=== PATIENT | male | born 1945 | race Caucasian/White ===

== ENCOUNTER 2022-09-12 09:34 | Inpatient (IN) | payer OTHER, MEDICAID ==
[~2022-09-12] VITALS: Ht 180.3 cm; Wt 68.0 kg
[2022-09-12 09:36] VITALS: BP 93/45
--- NOTE | 2022-09-12 09:36 | NUR ---
Patient BIBA to bed 5.
[2022-09-12] MEDS ORDERED: NACL 0.9% 500 ML IV ONE (09:55)
--- NOTE | 2022-09-12 10:04 | NUR ---
X-Ray at bedside.
[2022-09-12 10:06] LABS: BASOPHILS % (AUTO) 0.5 % (0.0-2.0); EOSINOPHILS # (AUTO) 0.4 K/uL (0-0.4); EOSINOPHILS % (AUTO) 4.7 % (0.0-4.0); HEMATOCRIT 35.5 % (36-52); LYMPHOCYTES # (AUTO) 1.7 K/uL (2.0-11.5); LYMPHOCYTES % (AUTO) 22.5 % (20.5-51.1); MEAN CORPUSCULAR HEMOGLOBIN 31 pg (27-31); MEAN CORPUSCULAR HGB CONC 34 g/dL (33-37); MEAN CORPUSCULAR VOLUME 92.9 fL (80-94); MONOCYTES # (AUTO) 0.5 K/uL (0.8-1.0); MONOCYTES % (AUTO) 6.2 % (1.7-9.3); NEUTROPHILS # (AUTO) 5.1 K/uL (1.8-7.7); NEUTROPHILS % (AUTO) 66.1 % (42.2-75.2); PLATELET COUNT (AUTO) 193 K/uL (140-450); RED BLOOD CELL COUNT(AUTO) 3.83 MIL/uL (4.20-6.10); RED CELL DISTRIBUTION WIDTH 14.4 % (11.6-13.7); WHITE BLOOD COUNT (AUTO) 7.7 K/uL (4.8-10.8)
[2022-09-12 10:43] LABS: ALBUMIN 3.8 g/dL (3.4-5.0); ANION GAP 10.5 (8-16); ASPARTATE AMINOTRANSFERASE 24 U/L (15-37); CARBON DIOXIDE 29.6 mmol/L (21-32); CHLORIDE 105 mmol/L (98-107); GLUCOSE 113 mg/dL (74-106); POTASSIUM 4.1 mmol/L (3.5-5.1); SODIUM SERUM 141 mmol/L (136-145); TOTAL BILIRUBIN 0.8 mg/dL (0.0-1.0); UREA NITROGEN, BLOOD 25 mg/dL (7-18)
[2022-09-12] MEDS ORDERED: ATOR40TA PO (11:01)
[2022-09-12] MEDS ORDERED: CITA-73 PO (11:01)
[2022-09-12] MEDS ORDERED: CARB1TAB39 PO (11:01)
[2022-09-12] MEDS ORDERED: QUET50TA PO (11:01)
[2022-09-12] MEDS ORDERED: BUS5 PO (11:01)
[2022-09-12] MEDS ORDERED: QUET25TA PO (11:01)
[2022-09-12] MEDS ORDERED: TRAZ-343 PO (11:02)
[2022-09-12] MEDS ORDERED: [UNRECOGNIZED DRUG - CODE] PO (11:02)
[2022-09-12] MEDS ORDERED: ASCO-518 PO (11:02)
--- NOTE | 2022-09-12 11:02 | NUR ---
med rec complete
--- NOTE | 2022-09-12 11:08 | NUR ---
Patient [place].
[2022-09-12 11:15] LABS: APPEARANCE,URINE CLEAR (CLEAR); BILIRUBIN,URINE NEGATIVE (NEGATIVE); BLOOD, URINE NEGATIVE (NEGATIVE); COLOR,URINE YELLOW (YELLOW); LEUKOCYTE ESTERASE ,URINE NEGATIVE (NEGATIVE); NITRITE, URINE NEGATIVE (NEGATIVE); UGLUCOSE NEGATIVE (NEGATIVE)
[2022-09-12] MEDS ORDERED: HYDROcodone/APAP 5/325 MG 1 TAB TAB PO PRN ×2 (11:50)
[2022-09-12] MEDS ORDERED: ONDANSETRON 4 MG/2 ML VIAL IVP PRN (11:50)
--- NOTE | 2022-09-12 12:38 | NUR ---
Patient is resting on bed, respirations even and unlabored. No signs of distress noted.
--- NOTE | 2022-09-12 13:05 | NUR ---
THIS IS AN ADMISSION OF A 77 YEAR OLD MALE UNDER THE CARE OF DOCTOR CORNELIA FOR NEAR SYNCOPE.
[2022-09-12] MEDS: CARBIDOPA/LEVODOPA 25/100 MG 1 TAB PO SCH ×2 (13:18→16:33)
--- NOTE | 2022-09-12 13:40 | NUR ---
Patient will be admitted to care of Dr. Holland. Admited to Telemetry. Will go to room 107-B. Belongings list completed. Report to ARVIN Lindsey.
--- NOTE | 2022-09-12 13:41 | NUR ---
The patient's care was reviewed and supervised by Syeda Fernández, RN, RN.
[2022-09-12 15:03] VITALS: BP 96/41
--- NOTE | 2022-09-12 15:52 | NUR ---
PATIENT HAS BEEN SCREENED AND CATEGORIZED LOW NUTRITION RISK. PATIENT WILL BE SEEN WITHIN 7 DAYS OF ADMISSION. 09/19/[address]
--- NOTE | 2022-09-12 16:05 | NUR ---
DAUGHTER ALEKSANDER, CALL FROM [place]. SHE IS ABLE TO KEEP IN TOUCH VIA PHONE CALLS TO/FROM OUT OF STATE TO HIS [facility] UNIT AND AT THIS TIME THE HOSPITAL. SHE WILL CALL TOMORROW TO CHAT WITH HER DAD.
--- NOTE | 2022-09-12 19:30 | NUR ---
RECEIVED REPORT FROM DAY SHIFT RN FOR CONTINUITY OF CARE. PT IS AWAKE AND WALKING AROUND THE ROOM. PT IS AAOX2 TO NAME AND DATE OF . PT HAS IV ON MARISOL 20 GAUGE SALINE LOCK. SAFETY MEASURES TAKEN. WILL CONTINUE TO MONITOR THE PT.
[2022-09-12 20:00] VITALS: BP 117/99
[2022-09-12] MEDS: busPIRone 5 MG TAB PO SCH (20:10)
[2022-09-12] MEDS: ATORVASTATIN 20 MG TAB PO SCH (20:10)
--- NOTE | 2022-09-12 20:10 | NUR ---
PT WAS GIVEN SCHEDULE MEDICATIONS. TOOK THEM WELL. NO ADVERSE REACTION NOTED. SNACKS ALSO PROVIDED.
[2022-09-12] MEDS: QUEtiapine FUMARATE 25 MG TAB PO SCH (20:11)
[2022-09-12] MEDS ORDERED: traZODone 50 MG TAB PO SCH (21:00)
[2022-09-13] VITALS: BP 125/68
--- NOTE | 2022-09-13 01:00 | NUR ---
OBSERVED PT. PT IS SLEEPING COMFORTABLY IN BED. NOT IN ANY DISTRESS. BREATHING EVEN AND UNLABORED. BED AT HE LOWEST POSITION. HEAD OF THE BED RAISED. WILL CONTINUE TO MONITOR THE PT.
[2022-09-13 04:00] VITALS: BP 138/75
--- NOTE | 2022-09-13 07:06 | NUR ---
ENDORSED PT TO DAY SHIFT SHIFT RN FOR CONTINUITY OF CARE PT IS STABLE.
[2022-09-13 07:28] LABS: EOSINOPHILS % (AUTO) 15.6 % (0.0-4.0); HEMATOCRIT 35.1 % (36-52); HEMOGLOBIN 11.9 g/dL (12.0-18.0); LYMPHOCYTES # (AUTO) 0.4 K/uL (2.0-11.5); LYMPHOCYTES % (AUTO) 6.2 % (20.5-51.1); MEAN CORPUSCULAR HEMOGLOBIN 32 pg (27-31); MEAN CORPUSCULAR HGB CONC 34 g/dL (33-37); MEAN CORPUSCULAR VOLUME 92.9 fL (80-94); MONOCYTES # (AUTO) 0.4 K/uL (0.8-1.0); MONOCYTES % (AUTO) 6.1 % (1.7-9.3); NEUTROPHILS # (AUTO) 4.6 K/uL (1.8-7.7); NEUTROPHILS % (AUTO) 72.1 % (42.2-75.2); PLATELET COUNT (AUTO) 180 K/uL (140-450); RED BLOOD CELL COUNT(AUTO) 3.78 MIL/uL (4.20-6.10); RED CELL DISTRIBUTION WIDTH 14.3 % (11.6-13.7); WHITE BLOOD COUNT (AUTO) 6.4 K/uL (4.8-10.8)
[2022-09-13 08:00] VITALS: BP 114/87
[2022-09-13 08:34] LABS: ANION GAP 13.9 (8-16); CARBON DIOXIDE 26.2 mmol/L (21-32); CHLORIDE 105 mmol/L (98-107); CREATININE 0.9 mg/dL (0.6-1.3); GLUCOSE 79 mg/dL (74-106); POTASSIUM 4.1 mmol/L (3.5-5.1); SODIUM SERUM 141 mmol/L (136-145); UREA NITROGEN, BLOOD 22 mg/dL (7-18)
[2022-09-13] MEDS: CARBIDOPA/LEVODOPA 25/100 MG 1 TAB PO SCH ×3 (09:43→16:57)
[2022-09-13] MEDS: QUEtiapine FUMARATE 25 MG TAB PO SCH ×2 (09:43→20:18)
[2022-09-13] MEDS: busPIRone 5 MG TAB PO SCH ×2 (09:43→20:18)
[2022-09-13] MEDS: ENOXAPARIN 40 MG/0.4 ML SYR SUBQ SCH (09:46)
[2022-09-13] MEDS: RIVASTIGMINE 1.5 MG CAP PO SCH (09:47)
[2022-09-13 12:00] VITALS: BP 121/59
[2022-09-13 16:00] VITALS: BP 131/69
--- NOTE | 2022-09-13 19:30 | NUR ---
RECEIVED REPORT FROM DAY SHIFT RN FOR CONTINUITY OF CARE. PT IS CURRENTLY SLEEPING COMFORTABLY IN BED. NOT IN ANY RESPIRATORY DISTRESS. BREATHING EVEN AND UNLABORED. BED AT THE LOWEST POSITION. HEAD OF THE BED RAISED. BREAKS LOCKED ON BED. CALL LIGHT WITHIN REACH. WILL CONTINUE TO MONITOR THE PT.
[2022-09-13 20:00] VITALS: BP 96/48
[2022-09-13] MEDS: ATORVASTATIN 20 MG TAB PO SCH (20:18)
--- NOTE | 2022-09-13 20:20 | NUR ---
SCHEDULE MEDICATION GIVEN. NO ADVERSE REACTION NOTED. WILL CONTINUE TO MONITOR THE PT.
[2022-09-14 04:00] VITALS: BP 140/76
--- NOTE | 2022-09-14 04:10 | NUR ---
VITAL SIGNS TAKEN AND STABLE. PT RESTING IN BED. NOT IN ANY DISTRESS. VISIBLE RISE AND CHEST FALL. SAFETY MEASURES TAKEN. WILL CONTINUE TO MONITOR THE PT.
[2022-09-14 06:56] LABS: BASOPHILS % (AUTO) 0.5 % (0.0-2.0); EOSINOPHILS # (AUTO) 0.5 K/uL (0-0.4); EOSINOPHILS % (AUTO) 7.8 % (0.0-4.0); HEMATOCRIT 35.1 % (36-52); HEMOGLOBIN 11.9 g/dL (12.0-18.0); LYMPHOCYTES # (AUTO) 2.5 K/uL (2.0-11.5); LYMPHOCYTES % (AUTO) 38.2 % (20.5-51.1); MEAN CORPUSCULAR HEMOGLOBIN 31 pg (27-31); MEAN CORPUSCULAR HGB CONC 34 g/dL (33-37); MEAN CORPUSCULAR VOLUME 92.5 fL (80-94); MONOCYTES # (AUTO) 0.5 K/uL (0.8-1.0); MONOCYTES % (AUTO) 8.3 % (1.7-9.3); NEUTROPHILS % (AUTO) 45.2 % (42.2-75.2); PLATELET COUNT (AUTO) 186 K/uL (140-450); RED BLOOD CELL COUNT(AUTO) 3.79 MIL/uL (4.20-6.10); RED CELL DISTRIBUTION WIDTH 14.2 % (11.6-13.7); WHITE BLOOD COUNT (AUTO) 6.6 K/uL (4.8-10.8)
[2022-09-14 07:02] LABS: ANION GAP 9.5 (8-16); CARBON DIOXIDE 28.8 mmol/L (21-32); CHLORIDE 106 mmol/L (98-107); CREATININE 0.9 mg/dL (0.6-1.3); GLUCOSE 77 mg/dL (74-106); POTASSIUM 4.3 mmol/L (3.5-5.1); SODIUM SERUM 140 mmol/L (136-145); UREA NITROGEN, BLOOD 22 mg/dL (7-18)
--- NOTE | 2022-09-14 07:07 | NUR ---
ENDORSED PT TO DAY SHIFT RN FOR CONTINUITY OF CARE. PT IS STABLE.
--- NOTE | 2022-09-14 07:10 | NUR ---
RECEIVED REPORT FROM COMPOSITION ROOFER NURSE FOR CONTINUITY OF CARE. PT STABLE AT THIS TIME.
[2022-09-14 08:00] VITALS: BP 164/72
[2022-09-14] MEDS: CARBIDOPA/LEVODOPA 25/100 MG 1 TAB PO SCH ×3 (09:41→17:13)
[2022-09-14] MEDS: QUEtiapine FUMARATE 25 MG TAB PO SCH ×2 (09:42→20:15)
[2022-09-14] MEDS: busPIRone 5 MG TAB PO SCH ×2 (09:42→20:16)
[2022-09-14] MEDS: ENOXAPARIN 40 MG/0.4 ML SYR SUBQ SCH (09:44)
[2022-09-14] MEDS: RIVASTIGMINE 1.5 MG CAP PO SCH (09:45)
[2022-09-14 16:00] VITALS: BP 120/72
[2022-09-14] MEDS: LORazepam 2 MG/ML VIAL IM/IVP PRN (18:08)
--- NOTE | 2022-09-14 19:25 | NUR ---
ENDORSED PT TO HOG RINGER NURSE FOR CONTINUITY OF CARE. PT IS STABLE AT THIS TIME.
[2022-09-14] MEDS: ATORVASTATIN 20 MG TAB PO SCH (20:16)
--- NOTE | 2022-09-14 21:02 | NUR ---
PT WAS ASSISTED TO THE RESTROOM AND BACK TO BED SAFELY. PT WAS CLEANED AND CHANGED.
--- NOTE | 2022-09-15 00:15 | NUR ---
OBSERVED PT. PT IS SLEEPING COMFORTABLY IN BED. NOT IN ANY DISTRESS. BREATHING EVEN AND UNLABORED. WILL CONTINUE TO MONITOR THE PT.
[2022-09-15 04:00] VITALS: BP 156/71
--- NOTE | 2022-09-15 04:00 | NUR ---
VITAL SIGNS TAKEN AND STABLE. PT NOT IN ANY DISTRESS. RESTING IN BED COMFORTABLY. BREATHING EVEN AND UNLABORED. WILL CONTINUE TO MONITOR THE PT.
[2022-09-15 06:52] LABS: BASOPHILS % (AUTO) 0.5 % (0.0-2.0); EOSINOPHILS # (AUTO) 0.5 K/uL (0-0.4); EOSINOPHILS % (AUTO) 6.9 % (0.0-4.0); HEMATOCRIT 36.9 % (36-52); HEMOGLOBIN 12.4 g/dL (12.0-18.0); LYMPHOCYTES % (AUTO) 39.1 % (20.5-51.1); MEAN CORPUSCULAR HEMOGLOBIN 31 pg (27-31); MEAN CORPUSCULAR HGB CONC 34 g/dL (33-37); MEAN CORPUSCULAR VOLUME 92.7 fL (80-94); MONOCYTES # (AUTO) 0.6 K/uL (0.8-1.0); MONOCYTES % (AUTO) 7.8 % (1.7-9.3); NEUTROPHILS # (AUTO) 3.5 K/uL (1.8-7.7); NEUTROPHILS % (AUTO) 45.7 % (42.2-75.2); PLATELET COUNT (AUTO) 207 K/uL (140-450); RED BLOOD CELL COUNT(AUTO) 3.97 MIL/uL (4.20-6.10); WHITE BLOOD COUNT (AUTO) 7.7 K/uL (4.8-10.8)
[2022-09-15 06:57] LABS: ANION GAP 10.3 (8-16); CHLORIDE 104 mmol/L (98-107); CREATININE 0.8 mg/dL (0.6-1.3); GLUCOSE 83 mg/dL (74-106); POTASSIUM 4.3 mmol/L (3.5-5.1); SODIUM SERUM 140 mmol/L (136-145); UREA NITROGEN, BLOOD 18 mg/dL (7-18)
--- NOTE | 2022-09-15 07:04 | NUR ---
ENDORSED PT TO DAY SHIFT RN FOR CONTINUITY OF CARE. PT IS STABLE.
--- NOTE | 2022-09-15 07:10 | NUR ---
RECEIVED REPORT FROM SALES FLOOR MANAGER NURSE FOR CONTINUITY OF CARE. PT STABLE AT THIS TIME.
[2022-09-15 08:00] VITALS: BP 115/52
[2022-09-15] MEDS: QUEtiapine FUMARATE 25 MG TAB PO SCH (09:47)
[2022-09-15] MEDS: busPIRone 5 MG TAB PO SCH (09:47)
[2022-09-15] MEDS: RIVASTIGMINE 1.5 MG CAP PO SCH (09:48)
[2022-09-15] MEDS: CARBIDOPA/LEVODOPA 25/100 MG 1 TAB PO SCH ×2 (09:48→12:26)
[2022-09-15] MEDS: ENOXAPARIN 40 MG/0.4 ML SYR SUBQ SCH (09:51)
[2022-09-15] MEDS: LORazepam 2 MG/ML VIAL IM/IVP PRN (10:41)
--- NOTE | 2022-09-15 13:02 | NUR ---
TRYING TO CALL THE FACILITY, NO ANSWER. CALLED ALEKSANDER, DAUGHTER @ [phone], SHE SAID SHE WILL CALL THE FACILITY. WILL CONTINUE TO MONITOR.
[2022-09-15 13:22] VITALS: BP 115/52
== END 2022-09-15 17:01 | DRG 312 ==
LOC: MED 09:34 → MTU 11:48
PROVIDERS: ADMIT Internal Medicine; ATTEND Internal Medicine
DX: R55 Syncope and collapse (principal); J96.10 Chronic respiratory failure, unspecified whether with hypoxia or hypercapnia; G20 Parkinson's disease; E78.00 Pure hypercholesterolemia, unspecified; Z20.822 Contact with and (suspected) exposure to COVID-19; F02.80 Dementia in other diseases classified elsewhere, unspecified severity, without behavioral disturbance, psychotic disturbance, mood disturbance, and anxiety; Z79.899 Other long term (current) drug therapy; Z95.0 Presence of cardiac pacemaker
CPT/HCPCS: 36415; 70450; 71045; 80048; 80053; 81003; 83735; 83880; 84484; 85025; 87081; 93005; 96360; 99285; J1650; J2060; Q0092